=== PATIENT | female | born 1990 | race African-American/Black ===

== ENCOUNTER 2018-09-28 14:49 | Emergency (ER) | payer SELFPAY ==
--- NOTE | 2018-09-28 15:28 | EDM.PDOC ---
ED HPI GENERAL MEDICAL PROBLEM - General Chief Complaint: General Stated Complaint: vaginal discharge Time Seen by Provider: 09/28/18 15:16 Source of Information: Reports: Patient History Limitations: Reports: No Limitations - History of Present Illness INITIAL COMMENTS - FREE TEXT/NARRATIVE: Patient presented to ER with concerns of either a vaginal infection or STD. Was treated for some type of infection about 2 weeks in [place]. Unsure what exactly she was diagnosed with. Had been dealing with constipation and abdominal pain. Was placed on a med and completed it, not sure what the med was. Questions if the infection didn't clear. Has a burning irritation in her vaginal area with a foul odor noted. Has not had intercourse since before any of this began. No fevers. No further abdominal pain. She denies nausea/ vomiting or issues with constipation at this time. No urinary complaints. Onset: Gradual Duration: Week(s): Location: Reports: Pelvis Quality: Reports: Burning Severity: Mild Associated Symptoms: Reports: No Other Symptoms Treatments [employer]: Reports: Other Medication(s) Other Treatments [employer]: unsure name of med or if was an antibiotic or not - Related Data Allergies Allergy/AdvReac Type Severity Reaction Status Date / Time tramadol Allergy Swelling Verified 09/28/18 15:40 Home Meds: Home Meds . [No Known Home Meds] 09/28/18 [History] Past Medical History - Past Health History Medical/Surgical History: Denies Medical/Surgical History Social & Family History - Tobacco Use Smoking Status *Q: Current Every Day Smoker Years of Tobacco use: 8 Packs/Tins Daily: 0.5 ED ROS GENERAL - Review of Systems Review Of Systems: See Below Constitutional: Denies: Fever, Chills, Malaise, Weakness, Fatigue HEENT: Reports: No Symptoms Respiratory: Reports: No Symptoms Cardiovascular: Reports: No Symptoms GI/Abdominal: Reports: No Symptoms : Reports: Discharge (vaginal discharge with increased odor. Noted irritation /burning) Musculoskeletal: Reports: No Symptoms Skin: Reports: No Symptoms ED EXAM, GENERAL - Physical Exam Exam: See Below Exam Limited By: No Limitations General Appearance: Alert, WD/WN, No Apparent Distress Respiratory/Chest: No Respiratory Distress, Lungs Clear, Normal Breath Sounds Cardiovascular: Regular Rate, Rhythm GI/Abdominal: Normal Bowel Sounds, Soft, Non-Tender (Female) Exam: Normal Bimanual Exam, Vaginal Discharge (thick light yellow discharge with foul odor noted). No: Cervix Motion Tenderness, Vaginal Bleeding , Vaginal Lesions Extremities: Normal Inspection, No Pedal Edema Neurological: Alert, Oriented Skin Exam: Warm, Dry Course - Vital Signs Last Recorded V/S: Last Vital Signs Temp 98.1 F 09/28/18 15:16 Pulse 73 09/28/18 15:16 Resp 20 09/28/18 15:16 BP 113/66 09/28/18 15:16 Pulse Ox 99 09/28/18 15:16 - Orders/Labs/Meds Orders: Active Orders 24 hr Category Date Time Status CULTURE GENITAL [RM] Stat Lab 09/28/18 15:33 Received - Re-Assessments/Exams Free Text/Narrative Re-Assessment/Exam: 09/28 Wet prep does show WBC and clue cells. Advised patient. Will start Flagyl. Departure - Departure Time of Disposition: 15:54 Disposition: Home, Self-Care 01 Condition: Good Clinical Impression: Bacterial vaginosis - Discharge Information *PRESCRIPTION DRUG MONITORING PROGRAM REVIEWED*: No *COPY OF PRESCRIPTION DRUG MONITORING REPORT IN PATIENT DELICIA: No Referrals: PCP,None [Primary Care Provider] - Forms: ED Department Discharge Additional Instructions: 1. Rest 2. Push fluids 3. Flagyl 500 mg twice a day for 7 days 4. Follow up in clinic if ongoing concerns. - My Orders Last 24 Hours: My Active Orders 09/28/18 15:33 CULTURE GENITAL [RM] Stat - Assessment/Plan Last 24 Hours: My Active Orders 09/28/18 15:33 CULTURE GENITAL [RM] Stat
== END 2018-09-28 16:05 | disposition home or self-care (01) ==
LOC: CC.ED 14:49
DX: N76.0 Acute vaginitis (principal); F17.210 Nicotine dependence, cigarettes, uncomplicated; Z88.5 Allergy status to narcotic agent
CPT/HCPCS: 87070; 87210; 99283